=== PATIENT | female | born 1970 | race American Indian/Alaskan Native ===

== ENCOUNTER 2019-01-04 13:01 | Emergency (ER) | payer SELFPAY ==
[2019-01-04] MEDS ORDERED: ATIVAN ONE (19:26)
--- NOTE | 2019-01-07 19:04 | Emergency Department Report ---
Blank Doc - Documentation Documentation: A physician and/or other qualified medical personnel has recommended that the patient receive further examination and/or treatment beyond their Medical Screening Exam. The risks and benefits were explained. The patient was informed of their right to emergency care. Patient left before final disposition of their medical condition. This note has been generated by me, Dr. Dusty Parra III, MD, the Tap Puller for the emergency department. I have not seen this patient personally.
== END 2019-01-04 14:09 | disposition left against medical advice (07) ==
LOC: ED 13:01
DX: K08.89 Other specified disorders of teeth and supporting structures (principal); Z53.21 Procedure and treatment not carried out due to patient leaving prior to being seen by health care provider
CPT/HCPCS: J2060